=== PATIENT | male | born 2000 | race Caucasian/White ===

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

== ENCOUNTER 2021-08-31 21:21 | Emergency (ER) | payer MEDICAID, SELFPAY ==
[2021-08-31 21:25] VITALS: BP 140/83; PULSE 70; RESP 18; TEMP 35.9; O2SAT 98; BMI 34.1
--- NOTE | 2021-08-31 23:45 | EX.ED.GUMALE ---
HPI History of Present Illness Chief Complaint: Male Pain/Injury Narrative Narrative: 21-year-old male presenting for treatment with postexposure prophylaxis as he had sex with another male and out of concern for HIV. He did have unprotected sex. He has no symptoms of dysuria, drainage. No testicular pain. He states he has no medical problems otherwise. PFSH PFSH Home Medications emtricitabine-tenofovir (TDF) [Truvada] 1 tab PO DAILY #28 tab 08/31/21 [Rx Last Taken Unknown] ondansetron 4 mg PO Q8H PRN PRN #28 tab 08/31/21 [Rx Last Taken Unknown] raltegravir 400 mg PO BID #56 tab 08/31/21 [Rx Last Taken Unknown] Allergy/AdvReac Type Severity Reaction Status Date / Time No Known Allergies Allergy Verified 09/13/20 22:49 Social History Smoking Status: Never smoker ROS ROS ED Constitutional Constitutional ED: Denies chills or fever(s) Eyes Eyes: Denies blurry vision or change in vision ENT ENT ED: Denies rhinorrhea or sore throat Cardiovascular Cardiovascular: Denies chest pain or palpitations Respiratory/Chest Respiratory/Chest: Denies cough or dyspnea Gastrointestinal Gastrointestinal: Denies abdominal pain, nausea or vomiting Genitourinary Genitourinary ED: Reports other Details: No drainage from the urethra. No rashes. ; Denies dysuria Musculoskeletal Musculoskeletal: Denies arthralgias or myalgias Integumentary Denies rash Neurologic Neurologic: Denies headache(s) or paresthesias EXAM Physical Exam Const Vital Signs: 08/31/21 21:25 Temperature 96.7 F L Temperature Source Temporal Pulse Rate 70 Respiratory Rate 18 Blood Pressure 140/83 H Blood Pressure Mean 102 Pulse Ox 98 Oxygen Delivery Method Room Air Positive well nourished General Appearance ED: NAD HEENT Reports moist mucous membranes normocephalic and atraumatic Eyes PERRL and EOMs intact bilaterally Resp normal respiratory effort and clear to auscultation bilaterally Cardio regular rate and regular rhythm Neuro oriented x3 Sensorium / Orientation: alert Psych mental status grossly normal Skin Lesions: no lesions Rashes: no rashes MDM MDM MDM Narrative Medical decision making narrative: 21-year-old male presenting for postexposure prophylaxis. He is concerned for HIV. He has no other symptoms of anything else. He I did offer to send a urine GC chlamydia. He will follow-up for the results of this. He is provided postexposure prophylaxis and prescriptions. Patient to return with any new or worsening symptoms. Impression: 1. Postexposure prophylaxis Discharge Plan Triage Chief Complaint: Male Pain/Injury ED Provider: Deshawn Salazar Dx/Rx/DC Orders Prescriptions: New raltegravir 400 mg tablet 400 mg PO BID Qty: 56 RF: 0 emtricitabine-tenofovir (TDF) [Truvada] 200-300 mg tablet 1 tab PO DAILY Qty: 28 RF: 0 ondansetron 4 mg tablet,disintegrating 4 mg PO Q8H PRN PRN (Reason: Nausea) Qty: 28 RF: 0 Primary Care Provider: Care Physician,No Primary Referrals: Isai Pressley MD [NON-STAFF] - Disposition Disposition: Home, Self Care
[2021-08-31 23:53] LABS: Mucous, Urine 0 SEEN /hpf (<or=2+)
[2021-08-31 23:54] LABS: Color, Urine Yellow (Yellow); Glucose, Dipstick Normal (Normal); Ketone-Dipstick Negative (Negative); Leukocyte Esterase-Dipstick Negative /ul (Negative); Nitrite-Dipstick Negative (Negative); Occult Blood-Urine Negative /ul (Negative); Protein-Dipstick 15 mg/dl (Negative); Urine Bilirubin Dipstick Negative (Negative); Urine Clarity Clear (Clear); Urine Urobilinogen Normal (Normal)
[2021-09-01 00:19] LABS: Bacteria 1+ /hpf (None Seen); Red Blood Cells-Urine 0-5 SEEN /hpf (0-5); Squamous Epithelial Cells - UA 0-5 SEEN /hpf (0-5); White Blood Cells 0-5 SEEN /hpf (0-5)
[2021-09-01] MEDS: Ondansetron ODT 4 MG Tablet PO (00:33)
[2021-09-01] MEDS: EMTRICITABINE/TENOFOVIR 1 TABLET TABLET PO (00:35)
[2021-09-01] MEDS: RALTEGRAVIR POTASSIUM 400 MG TABLET PO (00:35)
[2021-09-01 01:20] VITALS: PULSE 76; RESP 16; O2SAT 98
[2021-09-01 01:57] LABS: Chlamydia Trachomatis by PCR Negative (Negative); Neisserai gonorrhoeae by PCR Negative (Negative); Probe Check PASS; Sample Adequacy Control PASS; Specimen Processing Control PASS
--- NOTE | 2021-09-01 14:51 | CASEMGMT ---
Received tc from [facility] stating pt needs a prior auth for truvad. TC to per phone number given, spoke with rep. Rep states that there is not a need for a prior auth but a 9 needs entered into the code for SUL[facility] as the plan prefers the brand name over the generic. TC to [facility] in pharmacy, he was able to get med to run through.
== END 2021-09-01 01:20 | disposition home or self-care (01) ==
PROVIDERS: Emergency Provider Student in an Organized Health Care Education/Training Program
DX: Z11.4 Encounter for screening for human immunodeficiency virus [HIV] (principal)
CPT/HCPCS: 81001; 87491; 87591; 99283